=== PATIENT | male | born 1975 | race Caucasian/White ===

== ENCOUNTER 2016-08-19 19:50 | Emergency (ER) | payer BC ==
[~2016-08-19 19:50] MED LIST: Ondansetron 4 MG Tab.DIS PO ONE
[2016-08-19 19:58] VITALS: BP 128/87
[2016-08-19] MEDS ORDERED: Lactated Ringers 1,000 ML IV ONE (20:33)
[2016-08-19] MEDS ORDERED: Ondansetron 4 MG/2 ML SDV IVPUSH ONE (20:34)
--- NOTE | 2016-08-19 20:54 | EDM.PDOC ---
ED HPI GENERAL MEDICAL PROBLEM - General Chief Complaint: General Stated Complaint: nausea/diarrhea x 3days Time Seen by Provider: 08/19/16 20:25 Source of Information: Reports: Patient History Limitations: Reports: No limitations - History of Present Illness INITIAL COMMENTS - FREE TEXT/NARRATIVE: Wily is a 40 yo male who presents to the ER with concerns of nausea, vomiting and diarrhea. States three days ago he came down with diarrhea. Admits it has been quite frequent up until today. He was at work today when he had 1 episode of vomiting. His manager reimbursement recommend he come in to be seen. Admits besides the diarrhea and nausea he has been feeling well. Denies any upper respiratory symptoms. States he hasn't had any recent foreign travel or questionable food intake. Hasn't been able to eat for the last three days but has been trying to push fluids. Location: Reports: abdomen Associated Symptoms: Reports: loss of appetite, nausea/vomiting. Denies: confusion, chest pain, cough, cough w sputum, diaphoresis, fever/chills, headaches, rash, seizure, shortness of breath, syncope, weakness - Related Data Allergies Allergy/AdvReac Type Severity Reaction Status Date / Time No Known Allergies Allergy Verified 08/19/16 19:58 Home Meds: Home Meds . [No Known Home Meds] 03/06/16 [History] Past Medical History - Past Health History Medical/Surgical History: Denies Medical/Surgical History HEENT History: Reports: None Cardiovascular History: Reports: None Respiratory History: Reports: None Gastrointestinal History: Reports: None Genitourinary History: Reports: None Musculoskeletal History: Reports: Other (see below) Other Musculoskeletal History: torn tendons in left ankle Neurological History: Reports: None Psychiatric History: Reports: None Endocrine/Metabolic History: Reports: None Hematologic History: Reports: None Immunologic History: Reports: None Oncologic (Cancer) History: Reports: None Dermatologic History: Reports: None Social & Family History - Tobacco Use Smoking Status *Q: Never Smoker - Caffeine Use Caffeine Use: Reports: Soda - Recreational Drug Use Recreational Drug Use: No ED ROS GENERAL - Review of Systems Review Of Systems: See Below Constitutional: Reports: decreased appetite. Denies: fever, chills HEENT: Reports: No symptoms Respiratory: Reports: No Symptoms Cardiovascular: Reports: No symptoms Endocrine: Reports: no symptoms GI/Abdominal: Reports: Abdominal pain (cramping), Diarrhea, Decreased appetite, Nausea, Vomiting. Denies: Bloody stool, Constipation, Hematemesis, Hematochezia , Melena, Mucous in stool, Stool incontinence : Reports: no symptoms Musculoskeletal: Reports: no symptoms Skin: Reports: no symptoms Neurological: Reports: No Symptoms ED EXAM, GENERAL - Physical Exam Exam: See Below Exam Limited By: No limitations General Appearance: alert, no apparent distress Ears: normal external exam, normal canal, hearing grossly normal, normal TMs Nose: normal inspection, normal mucosa, no blood Throat/Mouth: Normal inspection, Normal lips, Normal gums, Normal oropharynx, Normal voice, No airway compromise Head: atraumatic, normocephalic Neck: normal inspection, supple, non-tender Respiratory/Chest: no respiratory distress, lungs clear, normal breath sounds, no accessory muscle use Cardiovascular: regular rate, rhythm, no edema, no murmur GI/Abdominal: normal bowel sounds, soft, no organomegaly, no distention, no mass , tender (mild tenderness) Extremities: normal inspection, normal range of motion, no pedal edema, normal capillary refill Neurological: alert, oriented, normal cognition, no motor/sensory deficits Psychiatric: normal affect, normal mood Skin Exam: Warm, Dry, Intact, Normal color, No rash Course - Vital Signs Last Recorded V/S: Last Vital Signs Temp 98.5 F 08/19/16 19:55 Pulse 73 08/19/16 19:55 Resp 20 08/19/16 19:55 BP 128/87 08/19/16 19:55 Pulse Ox 97 08/19/16 19:55 - Orders/Labs/Meds Orders: Active Orders 24 hr Category Date Time Status AMYLASE [CHEM] Stat Lab 08/19/16 20:35 Received C-REACTIVE PROTEIN [CHEM] Stat Lab 08/19/16 20:35 Received COMPREHENSIVE METABOLIC PN,CMP [CHEM] Stat Lab 08/19/16 20:35 Received MAGNESIUM [CHEM] Stat Lab 08/19/16 20:35 Received Lactated Ringers [Ringers, Lactated] 1,000 ml Med 08/19/16 20:33 Active IV .BOLUS Medication Orders Lactated Ringer's (Ringers, Lactated) 1,000 mls @ 999 mls/hr IV .BOLUS ONE Stop: 08/19/16 21:33 Last Admin: 08/19/16 20:41 Dose: 999 mls/hr Labs: Laboratory Tests 08/19/16 08/19/16 Range/Units 20:35 20:49 WBC 8.3 (5.0-10.0) 10^3/uL RBC 4.86 (4.50-6.00) 10^6/uL Hgb 14.4 (14.0-18.0) g/dL Hct 41.1 (40.0-54.0) % MCV 84.6 (82.0-94.0) fL MCH 29.6 (27.0-32.0) pg MCHC 35.0 (33.0-38.0) g/dL RDW Coeff of Ying 13.0 (11.0-15.0) % Plt Count 195 (150-400) 10^3/uL Neut % (Auto) 68.8 (35-85) % Lymph % (Auto) 21.7 (10-55) % [place] % (Auto) 7.9 (0-16) % Eos % (Auto) 1.0 (0-5) % Baso % (Auto) 0.6 (0-3) % Neut # (Auto) 5.72 (1.80-7.00) 10^3/uL Lymph # (Auto) 1.80 (1.00-4.80) 10^3/uL [place] # (Auto) 0.66 (0.00-0.80) 10^3/uL Eos # (Auto) 0.08 (0.00-0.45) 10^3/uL Baso # (Auto) 0.05 10^3/uL Urine Color Yellow (YELLOW) Urine Appearance Clear (CLEAR) Urine pH 5.5 (4.5-8.0) Ur Specific [place] 1.020 (1.003-1.020) Urine Protein Negative (NEGATIVE) mg/dL Urine Glucose (UA) Negative (NEGATIVE) mg/dL Urine Ketones Negative (NEGATIVE) mg/dL Urine Occult Blood Negative (NEGATIVE) Urine Nitrite Negative (NEGATIVE) Urine Bilirubin Negative (NEGATIVE) Urine Urobilinogen 0.2 (0.2-1.0) EU/dL Ur Leukocyte Esterase Negative (NEGATIVE) Urine RBC Not seen (0-5) /HPF Urine WBC Not seen (0-5) /HPF Ur Squamous Epith Cells Occasional H (NOT SEEN) /HPF Urine Bacteria Occasional H (NOT SEEN) /HPF Urine Mucus Few H (NOT SEEN) /HPF Meds: Medications Generic Name Dose Route Start Last Admin Trade Name Parth PRN Reason Stop Dose Admin Lactated Ringer's 1,000 mls @ 999 mls/hr 08/19/16 20:33 08/19/16 20:41 Ringers, Lactated IV 08/19/16 21:33 999 mls/hr .BOLUS ONE Administration Discontinued Medications Generic Name Dose Route Start Last Admin Trade Name Parth PRN Reason Stop Dose Admin Ondansetron HCl 4 mg 08/19/16 20:34 08/19/16 20:40 Zofran IVPUSH 08/19/16 20:35 4 mg ONETIME ONE Administration Ondansetron HCl 2 packet 08/19/16 21:01 Take Home: Ondansetron Odt 4 Mg, 2 Tab Pack PO 08/19/16 21:02 ONETIME ONE Departure - Departure Time of Disposition: 21:15 Disposition: Home, Self-Care 01 Condition: good Clinical Impression: Acute gastroenteritis Instructions: Viral Gastroenteritis, Adult, [id number] Referrals: PCP,Unobtain [Primary Care Provider] - Forms: ED Department Discharge Additional Instructions: 1) Push fluids- sips every 15 minutes while awake. Recommend water, gatorade, powerade, etc... 2) Rest 3) Zofran ODT - 1 tablet every 4 hours as needed for nausea 4) May take Tylenol if any discomfort or fevers 5) Total bilirubin was a little high, recommend recheck in clinic in a couple weeks. 6) If symptoms worsen or any concerns, recommend follow up. - Problem List & Annotations (1) Acute gastroenteritis SNOMED Code(s): 31658780 Code(s): K52.9 - NONINFECTIVE GASTROENTERITIS AND COLITIS, UNSPECIFIED Status: Acute Current Visit: Yes - Problem List Review Problem List Initiated/Reviewed/Updated: Yes - My Orders Last 24 Hours: My Active Orders 08/19/16 20:33 Lactated Ringers [Ringers, Lactated] 1,000 ml IV .BOLUS 08/19/16 20:35 AMYLASE [CHEM] Stat C-REACTIVE PROTEIN [CHEM] Stat COMPREHENSIVE METABOLIC PN,CMP [CHEM] Stat MAGNESIUM [CHEM] Stat - Assessment/Plan Last 24 Hours: My Active Orders 08/19/16 20:33 Lactated Ringers [Ringers, Lactated] 1,000 ml IV .BOLUS 08/19/16 20:35 AMYLASE [CHEM] Stat C-REACTIVE PROTEIN [CHEM] Stat COMPREHENSIVE METABOLIC PN,CMP [CHEM] Stat MAGNESIUM [CHEM] Stat Plan: Laboratory work was grossly unremarkable besides an elevated total bilirubin. LFT's were within normal limits. IV was started and a bolus of LR with Zofran was given. Will discharge home after IV fluids as Wily is doing well. No active emesis or diarrhea in ER. See additional instructions for details.
[2016-08-19] MEDS ORDERED: Take Home: Ondansetron 4 MG Tab.DIS, 2 Tab Pack PO ONE (21:01)
[2016-08-19 21:05] LABS: CHLORIDE,CL 106 mEq/L (98-106); SODIUM,NA 143 mEq/L (136-145)
[2016-08-19] MEDS ORDERED: Ondansetron 4 MG Tab.DIS PO PRN (21:11)
== END 2016-08-19 21:43 | disposition home or self-care (01) ==
LOC: CC.ED 19:50
DX: A08.4 Viral intestinal infection, unspecified (principal)
CPT/HCPCS: 36415; 80053; 81001; 82150; 83735; 85025; 86140; 96361; 96374; 99283; A9270; J2405; J7120; 96365; 96375

== ENCOUNTER 2017-06-14 00:13 | Emergency (ER) | payer BC ==
[2017-06-14] MEDS ORDERED: traMADol 50 MG Tab PO ONE (00:14)
[2017-06-14] MEDS ORDERED: Ondansetron 4 MG Tab.DIS PO ONE ×2 (00:14→00:20)
[2017-06-14 00:18] VITALS: BP 133/79
[2017-06-14] MEDS ORDERED: Ketorolac 60 MG/2 ML SDV IM ONE (00:20)
[2017-06-14] MEDS ORDERED: Take Home: traMADol 50 MG, 4 Tab Pack PO ONE (00:22)
[2017-06-14] MEDS ORDERED: Take Home: Ondansetron 4 MG Tab.DIS, 2 Tab Pack PO ONE (00:22)
--- NOTE | 2017-06-14 00:47 | EDM.PDOC ---
ED HPI GENERAL MEDICAL PROBLEM - General Chief Complaint: General Stated Complaint: "feels sick" Time Seen by Provider: 06/14/17 00:18 Source of Information: Reports: Patient History Limitations: Reports: No Limitations - History of Present Illness INITIAL COMMENTS - FREE TEXT/NARRATIVE: States he has had a headache with slight nausea and vomiting for about a week. Onset: Gradual, Unknown/Unsure Duration: Day(s): Location: Reports: Head, Abdomen Front/Back Body Image: 1 - pain most intence here. Quality: Reports: Pressure, Throbbing Severity: Moderate Improves with: Reports: None Worsens with: Reports: None Associated Symptoms: Reports: Nausea/Vomiting Generalized Pain Score (Numeric/FACES): 4 - Related Data Allergies Allergy/AdvReac Type Severity Reaction Status Date / Time No Known Allergies Allergy Verified 06/14/17 00:14 Home Meds: Home Meds Ondansetron [Zofran ODT] 4 mg PO Q4H PRN #12 tab.dis 08/19/16 [Rx] Past Medical History - Past Health History Medical/Surgical History: Denies Medical/Surgical History HEENT History: Reports: None Cardiovascular History: Reports: None Respiratory History: Reports: None Gastrointestinal History: Reports: None Genitourinary History: Reports: None Musculoskeletal History: Reports: Gout, Other (See Below) Other Musculoskeletal History: tear to tendons in right ankle Neurological History: Reports: None Psychiatric History: Reports: None Endocrine/Metabolic History: Reports: None Hematologic History: Reports: None Immunologic History: Reports: None Oncologic (Cancer) History: Reports: None Dermatologic History: Reports: None Social & Family History - Family History Family Medical History: Noncontributory - Tobacco Use Smoking Status *Q: Never Smoker - Caffeine Use Caffeine Use: Reports: Soda - Recreational Drug Use Recreational Drug Use: No ED ROS GENERAL - Review of Systems Review Of Systems: See Below Constitutional: Reports: Malaise HEENT: Reports: Rhinitis, Sinus Problem, Throat Pain Respiratory: Reports: No Symptoms Cardiovascular: Reports: No Symptoms Endocrine: Reports: No Symptoms GI/Abdominal: Reports: Nausea : Reports: No Symptoms Musculoskeletal: Reports: No Symptoms Skin: Reports: No Symptoms Neurological: Reports: Headache Psychiatric: Reports: No Symptoms ED EXAM, GENERAL - Physical Exam Exam: See Below Exam Limited By: No Limitations General Appearance: Alert, WD/WN Ears: Normal External Exam, Normal Canal, Normal TMs Nose: Normal Inspection, Clear Rhinorrhea Throat/Mouth: Normal Inspection Head: Atraumatic Neck: Normal Inspection Respiratory/Chest: No Respiratory Distress, Lungs Clear Cardiovascular: Normal Peripheral Pulses GI/Abdominal: Normal Bowel Sounds, Soft, Non-Tender, No Distention Extremities: Normal Inspection, Normal Range of Motion Neurological: Alert, Oriented, CN II-XII Intact, Normal Cognition, Normal Gait, Normal Reflexes, No Motor/Sensory Deficits Psychiatric: Normal Affect Skin Exam: Warm, Dry Course - Vital Signs Last Recorded V/S: Last Vital Signs Temp 96.7 F 06/14/17 00:15 Pulse 76 06/14/17 00:15 Resp 16 06/14/17 00:15 BP 133/79 06/14/17 00:15 Pulse Ox 96 06/14/17 00:15 - Orders/Labs/Meds Meds: Medications Discontinued Medications Generic Name Dose Route Start Last Admin Trade Name Freq PRN Reason Stop Dose Admin Ketorolac Tromethamine 60 mg 06/14/17 00:20 06/14/17 00:29 Toradol IM 06/14/17 00:21 60 mg ONETIME ONE Administration Ondansetron HCl 4 mg 06/14/17 00:20 06/14/17 00:29 Zofran Odt PO 06/14/17 00:21 4 mg ONETIME ONE Administration Ondansetron HCl 3 packet 06/14/17 00:22 06/14/17 00:34 Take Home: Ondansetron Odt 4 Mg, 2 Tab Pack PO 06/14/17 00:23 3 packet ONETIME ONE Administration Tramadol HCl 3 packet 06/14/17 00:22 06/14/17 00:33 Take Home: Tramadol 50 Mg, 4 Tab Pack PO 06/14/17 00:23 3 packet ONETIME ONE Administration Departure - Departure Time of Disposition: 00:45 Disposition: Home, Self-Care 01 Condition: Good Clinical Impression: Headache, Nausea - Discharge Information Instructions: Nausea, Adult, Sinus Headache Referrals: Eligio Pantoja MD [Primary Care Provider] -
== END 2017-06-14 00:59 | disposition home or self-care (01) ==
LOC: CC.ED 00:13
DX: R51 Headache (principal); R11.0 Nausea
CPT/HCPCS: 96372; 99283; A9270 ×3; J1885